=== PATIENT | female | born 1930 | race Caucasian/White ===

== ENCOUNTER 2017-04-06 11:12 | Emergency (ER) | payer OTHER ==
[~2017-04-06] VITALS: Ht 160 cm; Wt 72.6 kg
[2017-04-06 11:23] VITALS: BP 173/85
== END 2017-04-06 14:12 | disposition home or self-care (01) ==
LOC: ER 11:12
DX: S70.01XA Contusion of right hip, initial encounter (principal); W19.XXXA Unspecified fall, initial encounter; Y93.89 Activity, other specified; Y99.8 Other external cause status; Y92.89 Other specified places as the place of occurrence of the external cause
CPT/HCPCS: 72192; 73502